=== PATIENT | male | born 1950 | race Caucasian/White ===

== ENCOUNTER → 2020-02-11 10:48 | Outpatient (CLI) | payer MEDICARE, OTHER, SELFPAY ==
--- NOTE | 2020-02-11 12:14 | DI.US.S_ITS ---
PROCEDURE: US ABD AORTA ANEURYSM SCREEN INDICATIONS: AAA SCREEN TECHNIQUE: Real time scanning was performed of the aorta and iliac arteries, with image documentation. COMPARISON: None. FINDINGS: Aorta: Proximal aortic diameter measures 2.5 cm. Mid-aorta measures 2.1 cm. Distal aortic diameter is 2 cm. Iliac arteries: Right common iliac artery measures 1.5 cm. Left common iliac artery measures 1.5 cm. IMPRESSION: Negative for aneurysm. Dictated by: Dennis Esquivel M.D. on 02/11/2020 at 12:37 Approved by: Dennis Esquivel M.D. on 02/11/2020 at 12:38
[2020-02-11 12:32] LABS: Prostate Specific Antigen Scrn 2.85 ng/mL (0.1-4.0)
== END ==
PROVIDERS: PCP Student in an Organized Health Care Education/Training Program; Referring Provider Student in an Organized Health Care Education/Training Program; Visit Provider Student in an Organized Health Care Education/Training Program
DX: Z13.6 Encounter for screening for cardiovascular disorders (principal); Z12.5 Encounter for screening for malignant neoplasm of prostate; Z87.891 Personal history of nicotine dependence
CPT/HCPCS: 36415; 76706; G0103

== ENCOUNTER → 2021-02-26 10:05 | Outpatient (CLI) | payer MEDICARE, OTHER, SELFPAY ==
[2021-02-26 11:46] LABS: Cholesterol 203 mg/dL (140-199); HDL Cholesterol 56 mg/dL (40-60); LDL Cholesterol Calculated 129 mg/dL (<100); Triglycerides 89 mg/dL (35-150)
[2021-02-26 11:57] LABS: Vitamin D 25 Hydroxy (D3) 20.2 ng/mL (30.0-100.0)
[2021-02-26 12:12] LABS: Prostate Specific Antigen Scrn 2.69 ng/mL (0.1-4.0)
== END ==
PROVIDERS: PCP Student in an Organized Health Care Education/Training Program; Referring Provider Student in an Organized Health Care Education/Training Program; Visit Provider Student in an Organized Health Care Education/Training Program
DX: E78.2 Mixed hyperlipidemia (principal); Z12.5 Encounter for screening for malignant neoplasm of prostate; R97.20 Elevated prostate specific antigen [PSA]; E55.9 Vitamin D deficiency, unspecified
CPT/HCPCS: 36415; 80061; 82306; G0103

== ENCOUNTER → 2021-04-16 12:18 | Outpatient (CLI) | payer MEDICARE, OTHER, SELFPAY ==
--- NOTE | 2021-05-01 08:09 | PM.CARDMON.1 ---
Thread Puller Report Referral & Results Date Patient Seen: 04/16/21 Requesting provider: Earnest Sanchez Indication: Atrial fibrillation Duration of monitoring (days): 7 Diary information: There was 1 patient diary entry and 1 patient triggered event These patient events were associated variably with (within 45 seconds) sinus rhythm and PACs Data: Minimum heart rate identified was 52 beats per minute at 06:19 on 04/21/2021 Maximum sinus heart rate was 126 beats per minute at 16:33 on 04/21/2021 Maximum overall heart rate was 164 beats per minute at 17:39 on 04/20/2021 during a 4 beat run of nonsustained monomorphic ventricular tachycardia Approximately 5.3% of identified beats were supraventricular ectopic in origin which would classify them as frequent Less than 1% of identified beats were ventricular ectopic in origin which classify them as rare There was the single run of nonsustained ventricular tachycardia as above There were 3 runs of SVT the fastest being 118 beats per minute which would suggest probable atrial tachycardia rather than true SVT. The longest run lasted 15 beats at a rate of 111 beats per minute Proximally 3% of identified beats were atrial fibrillation in origin. Heart rate 64-140 beats per minute during these episodes of atrial fibrillation. 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 Clinical correlation suggested
== END ==
PROVIDERS: Family Provider Student in an Organized Health Care Education/Training Program; PCP Student in an Organized Health Care Education/Training Program; Referring Provider Student in an Organized Health Care Education/Training Program; Visit Provider Student in an Organized Health Care Education/Training Program
DX: I48.91 Unspecified atrial fibrillation (principal)
CPT/HCPCS: 93242; 93244

== ENCOUNTER → 2021-07-30 11:16 | Outpatient (CLI) | payer MEDICARE, OTHER, SELFPAY ==
--- NOTE | 2021-07-30 | DI.MRI.S_ITS ---
PROCEDURE: MR LUMBAR SPINE WO CON INDICATIONS: Radiculopathy, lumbar region TECHNIQUE: Noncontrast sagittal T1 spin echo and T2 fast echo, sagittal STIR, axial T1 and T2 fast spin echo through the lumbar spine. In cases with scoliosis, additional coronal T2 fast spin echo may be performed. COMPARISON: None. FINDINGS: Image quality: Excellent. Alignment and Curvature: Trace degenerative anterolisthesis of L3 on L4. Bone Marrow: Marrow is of normal overall signal. No acute vertebral body compression fractures. Spinal Cord: Conus medullaris terminates at the L1 level. Visualized cord demonstrates normal signal and size. Paraspinous Soft Tissues: No paravertebral masses. T12-L1: No canal stenosis or foraminal stenosis. L1-L2: No canal stenosis or foraminal stenosis. L2-L3: Minimal disc bulge. Facet hypertrophy. No canal stenosis or foraminal stenosis. L3-L4: Disc bulge, facet hypertrophy. Mild canal stenosis. Mild bilateral foraminal stenosis. L4-L5: Posterior annulus tear. Mild diffuse disc bulge with superimposed mild central posterior disc protrusion. Facet hypertrophy. Moderate canal stenosis. Additionally, there is a small superiorly extruded disc fragment in the right lateral recess and foramen which impinges on the right L4 nerve in the right lateral recess and medial right foramen. L5-S1: Posterior annulus tear associated with mild disc bulge. Facet hypertrophy. No canal stenosis. No significant foraminal stenosis. IMPRESSION: 1. At L4-L5, there is disc bulge with superimposed central posterior disc protrusion. There is moderate canal stenosis. A small, superior extruded disc fragment in the right lateral recess and right foramen impinges on the right L4 nerve root. 2. Mild canal stenosis at L3-L4. 3. Annulus tear plus disc bulge at L5-S1. 4. Multilevel facet arthropathy. Dictated by: Ranjan Abreu M.D. on 07/30/2021 at 13:54 Approved by: Ranjan Abreu M.D. on 07/30/2021 at 14:01
== END ==
PROVIDERS: Family Provider Student in an Organized Health Care Education/Training Program; PCP Student in an Organized Health Care Education/Training Program; Referring Provider Physical Medicine & Rehabilitation; Visit Provider Physical Medicine & Rehabilitation
DX: M51.16 Intervertebral disc disorders with radiculopathy, lumbar region (principal); M51.17 Intervertebral disc disorders with radiculopathy, lumbosacral region; M48.061 Spinal stenosis, lumbar region without neurogenic claudication; M47.26 Other spondylosis with radiculopathy, lumbar region; M47.27 Other spondylosis with radiculopathy, lumbosacral region
CPT/HCPCS: 72148

== ENCOUNTER → 2022-12-24 16:37 | Outpatient (CLI) | payer MEDICARE, OTHER, SELFPAY ==
--- NOTE | 2022-12-24 16:39 | DI.RAD.S_ITS ---
PROCEDURE: XR CHEST 2V INDICATIONS: CRAIN, peripheral edema, A fib hx, cigar use-pleuritis or ? TECHNIQUE: 2 views of the chest were acquired. COMPARISON: None. FINDINGS: Surgical changes and devices: None. Lungs and pleura: Moderate diffuse lung disease, probably combination of interstitial changes and airspace consolidation. There is also suspected atelectasis. Moderate left pleural effusion. Mediastinum: Heart borders are obscured. Bones and chest wall: No suspicious bony abnormalities. Soft tissues appear unremarkable. IMPRESSION: Moderate diffuse interstitial and airspace lung disease. Moderate left pleural effusion. Consider follow-up radiography versus CT depending on clinical context. An underlying mass cannot be excluded on radiography. Dictated by: Vincent Garcia M.D. on 12/24/2022 at 17:41 Approved by: Vincent Garcia M.D. on 12/24/2022 at 17:43
[2022-12-24 17:15] LABS: Add Manual Diff / Slide Review NO; Basophils Absolute Auto 0 /uL (0-100); Basophils Percent Auto 0.8 % (0-2); Eosinophils Absolute Auto 100 /uL (0-450); Eosinophils Percent Auto 2.2 % (2-4); Hematocrit 49.4 % (41-53); Hemoglobin 16.7 g/dL (13.5-17.5); Lymphocytes Absolute Auto 1200 /uL (1100-4500); Lymphocytes Percent Auto 22.4 % (25-40); Mean Corpuscular HGB Conc 33.9 % (30-36); Mean Corpuscular Hemoglobin 30.1 PG (26-34); Mean Corpuscular Volume 88.8 fL (80-100); Monocytes Absolute Auto 800 /uL (0-900); Neutrophils Absolute Auto 3200 /uL (1500-7000); Neutrophils Percent Auto 59.6 % (50-75); Platelet Count 230 X10^3/uL (150-400); Red Blood Cell Count 5.56 X10^6/uL (4.5-5.9); Red Cell Distribution Width 13.7 % (11.6-14.8); White Blood Cell Count 5.3 X10^3/uL (4.5-11.0)
[2022-12-24 17:24] LABS: Alanine Aminotransferase 18 IU/L (<50); Albumin 3.9 g/dL (3.5-5.0); Albumin Globulin Ratio 1.1 (1.0-2.8); Alkaline Phosphatase 69 U/L (38-126); Aspartate Aminotransferase 29 IU/L (17-59); BUN Creatinine Ratio 18.3 (6-22); Bilirubin Total 1.2 mg/dL (0.2-1.3); Blood Urea Nitrogen 13 mg/dL (9-20); Calcium 9.6 mg/dL (8.4-10.2); Carbon Dioxide 33 mmol/L (22-32); Chloride 103 mmol/L (98-107); Creatine Kinase 48 U/L (55-170); Estimated Glomerular Filt Rate > 60 mL/min (>60); Globulin 3.4 g/dL (1.7-4.1); Glucose 87 mg/dL (80-110); HEMOLYSIS < 15 (0-50); Potassium 3.8 mmol/L (3.4-5.1); Sodium 142 mmol/L (137-145); Total Protein 7.3 g/dL (6.3-8.2)
[2022-12-24 17:33] LABS: NT-proBNP (BNP-Adult 18+) 27 pg/mL (<125)
[2022-12-24 19:59] LABS: Erythrocyte Sedimentation Rate 2 MM/HR (0-15)
== END ==
PROVIDERS: Family Provider Student in an Organized Health Care Education/Training Program; PCP Pediatrics; Referring Provider Pediatrics; Visit Provider Pediatrics
DX: E78.2 Mixed hyperlipidemia (principal); R06.09 Other forms of dyspnea; I47.1 Supraventricular tachycardia; I48.0 Paroxysmal atrial fibrillation; J84.9 Interstitial pulmonary disease, unspecified; J90 Pleural effusion, not elsewhere classified
CPT/HCPCS: 36415; 71046; 80053; 82550; 83880; 85025; 85651

== ENCOUNTER 2022-12-27 09:22 | Day surgery (SDC) | payer MEDICARE, OTHER, SELFPAY ==
--- NOTE | 2022-12-27 | PATH_ITS ---
[facility] Accession Number: [id number] No. of containers..01 Tissue . 01 Material submitted: . colon - TRANSVERSE COLON POLYP . 01 Diagnosis: Transverse Colon Polyp: Tubular adenoma. MRV 01/02/2023 1530 Local . 01 Electronically signed: . Royce James MD, PhD, Pathologist NPI- [id number] . 01 Gross description: . TRANSVERSE COLON POLYP: Received in formalin is 1 fragment(s) of luther, soft tissue measuring 0.3 x 0.3 x 0.3 cm submitted entirely in 1 cassette(s) /LEOBARDO 12/31/2022 2312 Local . 01 Pathologist provided ICD-10: D12.3 . 01 CPT . 968544 Specimen Comment: A courtesy copy of this report has been sent to [facility] Pathology Performed at: 01 [facility] Cytology [address] [place] [id number] MD Maninder Taylor MD Phone: [phone]
[2022-12-27 10:04] VITALS: BP 117/72; PULSE 66; RESP 18; TEMP 36.4; O2SAT 94; BMI 25.0
[2022-12-27] MEDS: LACTATED RINGERS 1,000 ML 125 ML IV (10:13)
--- NOTE | 2022-12-27 10:43 | P.HP_ITS ---
History of Present Illness History of Present Illness Date Patient Seen: 12/27/22 Time Patient Seen: 10:43 Chief complaint: SDC, family history of colon cancer Narrative: This is a 72-year-old male who presents for a screening colonoscopy. He has had 2 previous colonoscopies the last was about 5 years ago at [facility]. His father did of colon cancer. Reports no concerning symptoms at that is time and no further questions or concerns [facility] Medical History (Updated 12/27/22 @ 10:45 by Rafaela Aguilar MD) CRAIN (dyspnea on exertion) H/O Mohs micrographic surgery for skin cancer Inguinal hernia Surgical History (Updated 12/27/22 @ 10:03 by Bandar Aguayo RN) Hx of inguinal hernia surgery Hx of tonsillectomy Social History household members: spouse Smoking Status: Current some day smoker alcohol intake: current Meds Home Medications and Allergies Home Medications Medication Instructions Recorded Confirmed Type aspirin 81 mg tablet,delayed 81 mg PO DAILY 04/09/21 12/27/22 History release (Adult Aspirin Regimen) tamsulosin 0.4 mg capsule 0.4 mg PO BEDTIME 09/12/22 12/27/22 History lovastatin 20 mg tablet 20 mg PO DAILY #90 tabs 09/18/22 12/27/22 Rx Allergies Allergy/AdvReac Type Severity Reaction Status Date / Time No Known Drug Allergies Allergy Unverified 12/24/22 16:09 Exam Vital Signs (past 8 hours): - 12/27/22 10:04 Temperature 97.5 F L Pulse Rate 66 Respiratory Rate 18 Blood Pressure 117/72 Pulse Oximetry 94 Const General: cooperative, healthy appearing and comfortable Nutritional Appearance: average body habitus and well nourished [facility] Head: normal to inspection Ears: other (possible slight hearing loss) Eyes General: appearance normal, both eyes and all related structures Resp Effort & Inspection: normal respiratory effort and able to speak in complete sentences GI Palpation: soft and No tender Assessment & Plan Assessment and plan (1) Family history of colon cancer: Status: Acute (2) Colon cancer screening: Status: Acute Assessment & Plan narrative: Presents today for screening colonoscopy I discussed the risks benefits and alternatives including but not limited to perforation of the colon and an incomplete exam he fully understands these risks and would like to proceed.
[2022-12-27 11:45] VITALS: BP 96/64; PULSE 62; RESP 14; TEMP 36.2; O2SAT 95
[2022-12-27 11:50] VITALS: BP 95/62; PULSE 60; RESP 14; O2SAT 94
--- NOTE | 2022-12-27 11:54 | PM.OP.COLON ---
Operative Date/Time/Diagnoses Date of procedure: 12/27/22 Pre-op diagnosis: Family history of colon cancer, screening Post-op diagnosis: same Procedure & Clinicians Study performed: Colonoscopy and biopsy Same procedure as scheduled: Yes Indications: Family history of colon cancer in father, and colon cancer screening. Surgeon: Rafaela Aguilar Procedure Notes Procedure in detail: Patient was taken to the endoscopy suite and placed in a left lateral decubitus position. A time-out was performed. With the help of anesthesiologist conscious sedation was induced and monitored throughout the case. A digital rectal exam was performed and there were no masses or strictures. The colonoscope was introduced into the anal canal and advanced through to the cecum. In the transverse colon a medium-sized polyp was seen and removed with a snare. The cecum was then reached and a photograph of the appendiceal orifice was obtained. The bowel prep was good [place] bowel prep score of 2. The scope was then withdrawn for a total of 8 minutes and no further polyps were seen. The scope was then retroflexed and a photograph of the internal hemorrhoidal piles was obtained. Findings: polyp(s) Specimen(s): other (transverse colon polyp) Complications: none Post-procedure Recommendations: Colonoscopy in 5 years
[2022-12-27 11:55] VITALS: BP 104/66; PULSE 58; RESP 18; O2SAT 97
[2022-12-27 12:12] VITALS: BP 110/73; PULSE 60; RESP 12; TEMP 36.5; O2SAT 98
== END 2022-12-27 12:17 | disposition home or self-care (01) ==
PROVIDERS: Family Provider Student in an Organized Health Care Education/Training Program; PCP Pediatrics; Referring Provider Surgery; Visit Provider Surgery
PROC: 0DJD8ZZ Inspection of Lower Intestinal Tract, Via Natural or Artificial Opening Endoscopic (ICD-10-PCS; CPT 45378; principal; 2022-12-27 10:45)
DX: Z12.11 Encounter for screening for malignant neoplasm of colon (principal); Z80.0 Family history of malignant neoplasm of digestive organs; D12.3 Benign neoplasm of transverse colon
CPT/HCPCS: 45385; J2704

== ENCOUNTER → 2023-01-13 09:15 | Outpatient (CLI) | payer MEDICARE, OTHER, SELFPAY ==
--- NOTE | 2023-01-13 09:17 | DI.CT.S_ITS ---
PROCEDURE: CT CHEST W CON INDICATIONS: SOB, abnorml chest xray, ? interstial dz TECHNIQUE: After the administration of intravenous contrast, 5 mm thick sections acquired from the pulmonary apices to the posterior costophrenic angles. 1 mm axial lung, 5 mm thick coronal and sagittal reformats and 7 mm axial MIP were acquired. For radiation dose reduction, the following was used: automated exposure control, adjustment of mA and/or kV according to patient size. COMPARISON: [facility], CR, XR CHEST 2V, 12/24/2022, 16:35. FINDINGS: Image quality: Excellent. Lungs and pleura: Extensive bilateral perihilar scarring is noted. Bronchiectasis and air bronchograms are present centrally. There is a large left low-density pleural effusion. Within the left pleural fluid there is an ill-defined mass which has a heterogeneous appearance and may contain some enhancing soft tissue which measures approximately 17.1 x 13.1 by 17.3 cm. There may be a small blood vessel feeding this mass from the anterior aspect of the aorta (series 2/image 45). Compressive atelectasis is present within the posterior aerated portion of the left lower lobe. Mediastinum: Heart size is normal. No pericardial effusion. No mediastinal or hilar adenopathy by size criteria. There are calcified bilateral hilar lymph nodes. Thoracic aorta and central pulmonary arteries are normal in size. Esophagus is normal in caliber. No hiatal hernia. Bones and chest wall: No suspicious bony lesions. No vertebral body compression fractures. No axillary or supraclavicular adenopathy by size criteria. Thyroid gland is unremarkable . Abdomen: Visualized upper abdominal solid organs appear normal. The superior aspect of the gallbladder has a heterogeneous appearance suggesting cholelithiasis, although enhancing soft tissue within the gallbladder cannot be excluded. Upper abdominal bowel loops are otherwise normal in caliber. IMPRESSION: 1. Bilateral perihilar scarring with extensive bronchiectasis and air bronchograms noted. These findings may be associated with a distant history of radiation pneumonitis or could represent sequela of a pneumoconiosis such as silicosis. Additionally, calcified lymph nodes suggest prior granulomatous disease. Correlation with clinical history would be helpful. 2. Complex pleural mass within the posterior inferior left pleural space. Differential considerations include neoplasm and congenital pulmonary airway malformation. There appears to be a small feeding artery off the anterior aspect of the descending thoracic aorta favoring pulmonary malformation. 3. Moderate-sized low-density left pleural effusion. 4. Heterogeneous appearance of the gallbladder which may represent cholelithiasis but is incompletely characterized on this limited view. If further characterization is warranted, right upper quadrant ultrasound could be used. Dictated by: Mera Soliz M.D. on 01/13/2023 at 12:58 Approved by: Mera Soliz M.D. on 01/13/2023 at 13:06
--- NOTE | 2023-01-13 09:39 | DI.ECHO.S_ITS ---
[facility]---------+ [facility] +---------+ : : [address] : : : : [id number] : : : : Phone: [phone]+ Echocardiogram Report + + :Name: ANDREA JOSUE Study Date: 01/13/2023 Height: 74 in : :[facility] ReadingLocation: Weight: 195 lb : : Gender: Male BSA: 2.1 m2 : :: 1950 Age: 72 yrs BP: 119/73 mmHg: :Reason For Study: SHORTNESS OF BREATH, LOWER EXTREMITY EDEMA : :Ordering Physician: ELEAZAR, : :INDER Blair Performed By: Iesha Juarez : :Referring: INDER BUSH : + + Interpretation Summary Technically difficult study. The left ventricular cavity is small. The ejection fraction is estimated to be 55-60%. No valvular abnormality. Non-cardiac echogenic mass, measuring 13.4cm x 13.5cm. Left pleural effusion noted. Procedure: A two-dimensional transthoracic echocardiogram with color flow and Doppler was performed. The study quality was technically difficult. There is no prior echocardiogram noted for this patient. The patient was in sinus rhythm with heart rates between 57-63 bpm during the exam. Left Ventricle: The left ventricular cavity is small. There is normal left ventricular wall thickness. The ejection fraction is estimated to be 55-60%. There are no obvious focal wall motion abnormalities noted but poor endocardial definition reduces the sensitivity for the detection of such. Right Ventricle: The right ventricle is not well visualized. The right ventricular systolic function is normal. Atria: The left atrial size is normal. Right atrial size is normal. There is no Doppler evidence for an interatrial shunt. Mitral Valve: The mitral valve is normal in structure and function. There is no mitral regurgitation noted. Aortic Valve: The aortic valve opens well. There is no aortic valve stenosis. No aortic regurgitation is present. Tricuspid Valve: The tricuspid valve is not well visualized, but is grossly normal. There is trace tricuspid regurgitation. Pulmonic Valve: The pulmonic valve is not well seen, but is grossly normal. There is mild pulmonic regurgitation. Great Vessels: The aortic root is normal size. The ascending aorta could not be visualized. The IVC is of normal diameter and collapses greater than 50% with a sniff. This suggests a low right atrial pressure of 3 mm Hg. Pericardium/ Pleura There is no pericardial effusion. Non-cardiac echogenic mass, measuring 13.4cm x 13.5cm. Left pleural effusion noted. MMode/2D Measurements & Calculations LVIDd: 3.6 cm LVOT diam: 2.2 cm LVIDs: 2.4 cm Ao root diam: 3.7 cm FS: 33.5 % Ao Arch Diam (Prox Trans): 2.5 cm IVSd: 0.92 cm LVPWd: 0.93 cm LV harding. diameter/BSA (cm/m^2): 1.7 LV sys. diameter/BSA (cm/m^2): 1.1 LA A2 area: 21.6 cm2 RA long axis: 5.5 cm LA A4 area: 17.6 cm2 RA area: 20.1 cm2 LA length (vol): 5.7 cm RA vol: 62.2 ml LA vol: 56.4 ml RA : 28.9 ml/m2 LA vol index: 26.3 ml/m2 IVC diam: 1.9 cm TAPSE: 1.8 cm Doppler Measurements & Calculations Ao V2 max: 98.8 cm/sec LVOT Max Mike: 95.6 cm/sec Ao V2 mean: 75.8 cm/sec LV V1 max P.7 mmHg Ao max P.9 mmHg LV V1 VTI: 21.7 cm Ao mean P.5 mmHg KEVAN(I,D): 3.8 cm2 Ao V2 VTI: 21.6 cm KEVAN(V,D): 3.7 cm2 sev ratio: 1.0 KEVAN indexed to BSA (cm^2/m^2): 1.8 MV E max mike: 115.3 cm/sec PA V2 max: 77.0 cm/sec MV A max mike: 96.1 cm/sec PA V2 mean: 52.7 cm/sec MV E/A: 1.2 PA mean P.3 mmHg Med Peak E' Mike: 5.0 cm/sec PA pr(Accel): 25.9 mmHg E/E' med: 22.9 Lat Peak E' Mike: 7.6 cm/sec E/E' lat: 15.1 E/e' average: 19.0 MV dec time: 0.27 sec MVA(VTI): 2.4 cm2 MV V2 mean: 70.1 cm/sec SV(LVOT): 82.5 ml MV mean P.2 mmHg MV V2 VTI: 34.4 cm Electronically signed by: Rick Villalobos on Reading Physician:01/13/2023 03:17 PM
== END ==
PROVIDERS: Family Provider Student in an Organized Health Care Education/Training Program; PCP Pediatrics; Referring Provider Pediatrics; Visit Provider Pediatrics
DX: I48.0 Paroxysmal atrial fibrillation (principal); J90 Pleural effusion, not elsewhere classified; J94.9 Pleural condition, unspecified; J47.9 Bronchiectasis, uncomplicated; J98.4 Other disorders of lung; I47.1 Supraventricular tachycardia; R06.09 Other forms of dyspnea
CPT/HCPCS: 71260; 93306; Q9967

== ENCOUNTER → 2023-02-21 09:19 | Outpatient (CLI) | payer MEDICARE, OTHER, SELFPAY ==
--- NOTE | 2023-02-21 09:20 | DI.US.S_ITS ---
PROCEDURE: US CHEST COMPARISON: [facility], CT, CT CHEST W CON, 01/13/2023, 10:28. INDICATIONS: LEFT PLEURAL EFFUSION - CONSULT FOR DIAGNOSTIC AND THERAPEUTIC THORACENTESIS FINDINGS: Large left Thoracic mass redemonstrated. The mass occupies most of the imaged thoracic cavity. Left pleural fluid is present, however the volume and configuration of the fluid is not amenable for safe thoracentesis. IMPRESSION: Left pleural fluid is present, volume and configuration of the fluid not amenable for safe thoracentesis. Discussed with the patient at the conclusion of the exam. Dictated by: Dayo Sebastian M.D. on 02/21/2023 at 10:09 Approved by: Dayo Sebastian M.D. on 02/21/2023 at 10:11
[2023-02-21 09:40] LABS: Add Manual Diff / Slide Review NO; Basophils Absolute Auto 0 /uL (0-100); Basophils Percent Auto 0.7 % (0-2); Eosinophils Absolute Auto 200 /uL (0-450); Eosinophils Percent Auto 3.3 % (2-4); Hematocrit 42.2 % (41-53); Hemoglobin 14.2 g/dL (13.5-17.5); Lymphocytes Absolute Auto 1000 /uL (1100-4500); Lymphocytes Percent Auto 18.2 % (25-40); Mean Corpuscular HGB Conc 33.7 % (30-36); Mean Corpuscular Hemoglobin 29.4 PG (26-34); Mean Corpuscular Volume 87.3 fL (80-100); Monocytes Absolute Auto 700 /uL (0-900); Monocytes Percent Auto 12.6 % (3-14); Neutrophils Absolute Auto 3700 /uL (1500-7000); Neutrophils Percent Auto 65.2 % (50-75); Platelet Count 247 X10^3/uL (150-400); Red Blood Cell Count 4.84 X10^6/uL (4.5-5.9); Red Cell Distribution Width 13.2 % (11.6-14.8); White Blood Cell Count 5.6 X10^3/uL (4.5-11.0)
[2023-02-21 09:46] LABS: INR 1.2 (0.9-1.3); Prothrombin Time 13.9 SECONDS (10.1-12.7)
== END ==
PROVIDERS: Family Provider Student in an Organized Health Care Education/Training Program; PCP Pediatrics; Referring Provider Internal Medicine Critical Care Medicine; Visit Provider Internal Medicine Critical Care Medicine
DX: J90 Pleural effusion, not elsewhere classified (principal)
CPT/HCPCS: 36415; 76604; 85025; 85610

== ENCOUNTER → 2023-06-03 10:47 | Outpatient (CLI) | payer MEDICARE, OTHER, SELFPAY ==
--- NOTE | 2023-06-03 | DI.RAD.S_ITS ---
PROCEDURE: XR CHEST 2V INDICATIONS: S/P LUNG SURGERY TECHNIQUE: 2 views of the chest were acquired. COMPARISON: [facility], , XR CHEST 2V, 12/24/2022, 16:35. FINDINGS: Surgical changes and devices: Chronic interstitial changes are present. Previous retrocardiac left lower lobe opacity has resolved. Lungs and pleura: Lungs are clear. No pleural effusions or pneumothorax. Mediastinum: Mediastinal contours are normal. Heart size is normal. Bones and chest wall: No suspicious bony abnormalities. Soft tissues appear unremarkable. IMPRESSION: No new focal area of consolidation. Dictated by: Jodi Wing M.D. on 06/03/2023 at 15:55 Approved by: Jodi Wing M.D. on 06/03/2023 at 15:56
== END ==
PROVIDERS: Family Provider Student in an Organized Health Care Education/Training Program; PCP Pediatrics; Referring Provider Physician Assistant; Visit Provider Physician Assistant
DX: Z09 Encounter for follow-up examination after completed treatment for conditions other than malignant neoplasm (principal); D49.2 Neoplasm of unspecified behavior of bone, soft tissue, and skin; J43.2 Centrilobular emphysema; R91.8 Other nonspecific abnormal finding of lung field
CPT/HCPCS: 71046; 99214

== ENCOUNTER → 2023-06-16 10:42 | Outpatient (CLI) | payer MEDICARE, OTHER, SELFPAY ==
--- NOTE | 2023-06-16 10:44 | DI.CT.S_ITS ---
PROCEDURE: CT CHEST WO CON INDICATIONS: Multiple pulmonary nodules and emphysema on PET CT. Eval TECHNIQUE: Noncontrast 2.0-2.5 mm thick sections acquired from the pulmonary apices to the posterior costophrenic angles. 7 mm thick axial MIP and 5 mm coronal and sagittal reformats were then acquired. For radiation dose reduction, the following was used: automated exposure control, adjustment of mA and/or kV according to patient size. COMPARISON: Outside Facility, RG, CT PET SKULL BASE TO MID THIGH, 02/25/2023, 13:28. [facility], CT, CT CHEST W CON, 01/13/2023, 10:28. FINDINGS: Image quality: Diagnostic, given the low radiation dose technique. Lungs and pleura: The large left lower lobe mass is no longer visualized. There is left infrahilar opacity, measuring 2.7 x 2.8 cm. There is bronchiectasis in left lower lobe. There are multiple small pulmonary nodules, unchanged in size. Reference nodules are listed in following: Nodule 1: 6 mm; posterior right upper lobe; series 3, image 88. Nodule 2: 7 mm; right middle lobe; series 3, image 181. Nodule 3: 10 mm; anterior left upper lobe; series 3, image 128. There is a small loculated left pleural effusion. Mediastinum: Heart size is normal. There is moderate coronary artery calcification. No pericardial effusion. No mediastinal adenopathy by size criteria. Thoracic aorta and central pulmonary arteries are normal in size. Esophagus is normal in caliber. Small hiatal hernia. Bones and chest wall: No suspicious bony lesions. No vertebral body compression fractures. No axillary or supraclavicular adenopathy by size criteria. No thyroid nodules which require sonographic follow up, per consensus guidelines. Upper Abdomen: Visualized upper abdomen solid organs and bowel loops appear normal in the absence of contrast. IMPRESSION: 1. The large left lower lobe nodule seen on the comparison exam is no longer visualized. There is an infrahilar opacity measuring 2.7 x 2.8 cm, suspicious for an inflammatory mass. Recommend follow-up to resolution. 2. Stable pulmonary nodules bilaterally. 3. Small loculated left pleural effusion. Fleischner Society criteria for SOLID lung nodule followup. Nodule size (mm)Low-risk patientHigh-risk patient<6 (single or multiple)No routine followup.Optional CT at 12 months. 6-8 (single or multiple)CT at 6-12 months, then optional CT at 18-24 mo.CT at 6-12 months, then CT at 18-24 months. >8 (single)CT at 3 months, PET-CT, or biopsy. Same as for low-risk pts. >8 (multiple)CT at 3-6 months, then optional CT at 18-24 mo.CT at 3-6 months, then CT at 18-24 months. Recommendations do not apply to lung cancer screening, patients with immunosuppression, or patients with known primary cancer. Dictated by: Margot Delgado M.D. on 06/17/2023 at 14:01 Approved by: Margot Delgado M.D. on 06/17/2023 at 14:17
== END ==
PROVIDERS: Family Provider Student in an Organized Health Care Education/Training Program; PCP Family Medicine; Referring Provider Internal Medicine Critical Care Medicine; Visit Provider Internal Medicine Critical Care Medicine
DX: J43.2 Centrilobular emphysema (principal); J90 Pleural effusion, not elsewhere classified; R91.8 Other nonspecific abnormal finding of lung field; I25.10 Atherosclerotic heart disease of native coronary artery without angina pectoris; K44.9 Diaphragmatic hernia without obstruction or gangrene
CPT/HCPCS: 71250

== ENCOUNTER → 2023-10-14 11:45 | Outpatient (CLI) | payer MEDICARE, OTHER, SELFPAY ==
--- NOTE | 2023-10-14 11:46 | DI.CT.S_ITS ---
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 1 mm lung window, 5 mm thick coronal and sagittal and 7 mm axial MIP reformats were then acquired. For radiation dose reduction, the following was used: automated exposure control, adjustment of mA and/or kV according to patient size. COMPARISON: Outside Facility, RG, CT PET SKULL BASE TO MID THIGH, 02/25/2023, 13:28. [facility], CT, CT CHEST WO CON, 06/16/2023, 10:49. FINDINGS: Image quality: Diagnostic. Lower Neck: No enlarged lymph nodes. Thyroid: No thyroid nodules which require sonographic follow up, per consensus guidelines. Axillae: No enlarged lymph nodes. Chest Wall: Unremarkable. Bones: Unremarkable. Lungs and Pleura: Postoperative changes are redemonstrated in the lower left hemithorax. When compared with the study dated June 16, 2023, the low-density loculated appearing pleural effusion has nearly entirely resolved. As before, scarring and bronchiectasis is present in the bilateral perihilar regions. This has an unchanged appearance from the prior study. Severe emphysema is redemonstrated. No new suspicious pulmonary nodules or mass lesions. No new airspace opacities. Heart: Heart size is normal. No pericardial effusion. Thoracic Vessels: The aorta and pulmonary arteries demonstrate normal size. Mediastinum and [place]: No enlarged lymph nodes. Esophagus: The esophagus is patulous and gas-filled. No wall thickening. Upper Abdomen: Visualized upper abdomen solid organs and bowel loops appear normal. IMPRESSION: 1. Near complete resolution of the small left pleural effusion when compared with the prior CT. 2. No findings to suggest tumor recurrence or new metastasis. Dictated by: Mera Soliz M.D. on 10/14/2023 at 13:36 Approved by: Mera Soliz M.D. on 10/14/2023 at 13:53
== END ==
PROVIDERS: Family Provider Family Medicine; PCP Family Medicine; Referring Provider Thoracic Surgery (Cardiothoracic Vascular Surgery); Visit Provider Thoracic Surgery (Cardiothoracic Vascular Surgery)
DX: D49.2 Neoplasm of unspecified behavior of bone, soft tissue, and skin (principal); J98.4 Other disorders of lung; J47.9 Bronchiectasis, uncomplicated
CPT/HCPCS: 71250

== ENCOUNTER → 2023-11-24 08:04 | Outpatient (CLI) | payer MEDICARE, OTHER, SELFPAY ==
--- NOTE | 2023-11-24 08:06 | DI.ECHO.S_ITS ---
[place] +---------+ [facility] : : [address] : : [place] : : [id number] : : Phone: [phone] Echocardiogram Report + + :Name: ANDREA JOSUE Study Date: 11/24/2023 Height: 74 in : :Hospital ReadingLocation: Weight: 190 lb : : Gender: Male BSA: 2.1 m2 : :: 1950 Age: 73 yrs BP: 113/69 mmHg: :Reason For Study: ATRIAL FIBRILLATION : :Ordering Physician: SALBADOR DANPerformed By: Iesha Juarez : :Referring: SALBADOR DAN : + + Interpretation Summary Normal left ventricle size with ejection fraction 60-65%. No valvular abnormality. Procedure: A two-dimensional transthoracic echocardiogram with color flow and Doppler was performed. The study quality was technically difficult. Comparison is made with the echocardiogram of 01/13/2023. The patient was in sinus bradycardia with heart rates between 52-55 bpm during the exam. Left Ventricle: The left ventricle is normal in size and wall thickness. The ejection fraction is estimated to be 60-65%. There are no obvious focal wall motion abnormalities noted but poor endocardial definition reduces the sensitivity for the detection of such. Right Ventricle: The right ventricle grossly appears normal in size with probable normal systolic function. Atria: The left atrial size is normal. Right atrial size is normal. There is no Doppler evidence for an interatrial shunt. Mitral Valve: The mitral valve is normal in structure and function. There is trace mitral regurgitation. Aortic Valve: The aortic valve is not well visualized. There is no aortic valve stenosis. There is trace aortic regurgitation. Tricuspid Valve: The tricuspid valve is normal in structure and function. There is trace tricuspid regurgitation. Pulmonic Valve: The pulmonic valve is not well seen, but is grossly normal. There is mild pulmonic regurgitation. Great Vessels: The aortic root is normal size. The dimensions of the ascending aorta are normal. The IVC is of normal diameter and collapses greater than 50% with a sniff. This suggests a low right atrial pressure of 3 mm Hg. Pericardium/ Pleura There is no pericardial effusion. There is no pleural effusion. MMode/2D Measurements & Calculations LVIDd: 5.2 cm LVOT diam: 2.3 cm LVIDs: 3.2 cm Ao root diam: 3.6 cm FS: 39.2 % asc Aorta Diam: 3.7 cm IVSd: 0.92 cm Ao Arch Diam (Prox Trans): 3.0 cm LVPWd: 0.72 cm LV harding. diameter/BSA (cm/m^2): 2.5 LV sys. diameter/BSA (cm/m^2): 1.5 LA A2 area: 18.0 cm2 RA long axis: 4.7 cm LA A4 area: 16.6 cm2 RA area: 15.6 cm2 LA length (vol): 4.4 cm RA vol: 44.5 ml LA vol: 56.9 ml RA : 20.9 ml/m2 LA vol index: 26.7 ml/m2 IVC diam: 1.9 cm RVD1 (basal): 4.3 cm TAPSE: 2.3 cm Doppler Measurements & Calculations Ao V2 max: 126.6 cm/sec LVOT Max Mike: 113.0 cm/sec Ao V2 mean: 91.7 cm/sec LV V1 max P.1 mmHg Ao max P.4 mmHg LV V1 VTI: 25.0 cm Ao mean P.7 mmHg KEVAN(I,D): 3.6 cm2 Ao V2 VTI: 27.9 cm KEVAN(V,D): 3.6 cm2 sev ratio: 0.90 KEVAN indexed to BSA (cm^2/m^2): 1.7 MV E max mike: 90.3 cm/sec PA V2 max: 83.6 cm/sec MV A max mike: 80.5 cm/sec PA V2 mean: 61.3 cm/sec MV E/A: 1.1 PA mean P.6 mmHg Med Peak E' Mike: 8.3 cm/sec PA pr(Accel): 34.5 mmHg E/E' med: 10.9 Lat Peak E' Mike: 7.4 cm/sec E/E' lat: 12.2 E/e' average: 11.6 MV dec time: 0.26 sec SV(LVOT): 100.1 ml Electronically signed by: Rick Villalobos on Reading Physician:11/24/2023 11:03 AM
== END ==
PROVIDERS: Family Provider Family Medicine; PCP Family Medicine; Referring Provider Family Medicine; Visit Provider Family Medicine
DX: I37.1 Nonrheumatic pulmonary valve insufficiency (principal); I48.91 Unspecified atrial fibrillation
CPT/HCPCS: 93306

== ENCOUNTER → 2023-11-25 09:10 | Outpatient (CLI) | payer MEDICARE, OTHER, SELFPAY ==
[2023-11-25 10:17] LABS: Hemoglobin A1C% w Est Avg Glu 5.5 % (4.0-6.0)
[2023-11-25 10:19] LABS: Add Manual Diff / Slide Review NO; Basophils Absolute Auto 0 /uL (0-100); Basophils Percent Auto 0.5 % (0-2); Eosinophils Absolute Auto 200 /uL (0-450); Eosinophils Percent Auto 2.6 % (2-4); Hematocrit 43.1 % (41-53); Hemoglobin 14.6 g/dL (13.5-17.5); Lymphocytes Absolute Auto 1200 /uL (1100-4500); Lymphocytes Percent Auto 19.3 % (25-40); Mean Corpuscular HGB Conc 33.8 % (30-36); Mean Corpuscular Hemoglobin 29.5 PG (26-34); Mean Corpuscular Volume 87.2 fL (80-100); Monocytes Absolute Auto 600 /uL (0-900); Monocytes Percent Auto 10.6 % (3-14); Neutrophils Absolute Auto 4000 /uL (1500-7000); Platelet Count 263 X10^3/uL (150-400); Red Blood Cell Count 4.95 X10^6/uL (4.5-5.9); Red Cell Distribution Width 13.5 % (11.6-14.8)
[2023-11-25 10:56] LABS: Alanine Aminotransferase 17 IU/L (<50); Albumin 3.9 g/dL (3.5-5.0); Albumin Globulin Ratio 1.4 (1.0-2.8); Alkaline Phosphatase 72 U/L (38-126); Aspartate Aminotransferase 30 IU/L (17-59); BUN Creatinine Ratio 12.5 (6-22); Bilirubin Total 0.9 mg/dL (0.2-1.3); Blood Urea Nitrogen 12 mg/dL (9-20); Carbon Dioxide 31 mmol/L (22-32); Chloride 106 mmol/L (98-107); Cholesterol 159 mg/dL (140-199); Estimated Glomerular Filt Rate > 60 mL/min (>60); Globulin 2.7 g/dL (1.7-4.1); Glucose 103 mg/dL (80-110); HDL Cholesterol 49 mg/dL (40-60); HEMOLYSIS < 15 (0-50); Magnesium 1.8 mg/dL (1.6-2.3); Potassium 4.4 mmol/L (3.4-5.1); Sodium 141 mmol/L (137-145); Total Protein 6.6 g/dL (6.3-8.2)
[2023-11-25 11:11] LABS: LDL Cholesterol Calculated 88 mg/dL (<100); Triglycerides 109 mg/dL (35-150)
== END ==
LOC: LAB 09:12
PROVIDERS: Family Provider Family Medicine; PCP Family Medicine; Referring Provider Internal Medicine Cardiovascular Disease; Visit Provider Internal Medicine Cardiovascular Disease
DX: I48.91 Unspecified atrial fibrillation (principal); R79.9 Abnormal finding of blood chemistry, unspecified; I25.89 Other forms of chronic ischemic heart disease; E78.5 Hyperlipidemia, unspecified; I25.10 Atherosclerotic heart disease of native coronary artery without angina pectoris
CPT/HCPCS: 36415; 80053; 80061; 83036; 83735; 84443; 85025

== ENCOUNTER → 2024-01-14 09:25 | Outpatient (CLI) | payer MEDICARE, OTHER, SELFPAY ==
--- NOTE | 2024-01-14 09:26 | DI.NM.S_ITS ---
PROCEDURE: NM NATHALIA PERF SPECT REST & STR Rest and exercise myocardial perfusion SPECT with gated imaging and ejection fraction RADIOPHARMACEUTICAL: 9.6 mCi Tc-99m sestamibi IV at rest and 27.2 mCi Tc-99m sestamibi IV at peak exercise. A 1-sky-[id number] was performed. INDICATIONS: Atrial fibrillation TECHNIQUE: Radiopharmaceutical was injected at peak stress test, and also at rest. SPECT images were obtained. SPECT myocardial perfusion images were displayed in short axis, horizontal long axis, and vertical long axis views. Gated images were reviewed using [employer] software. COMPARISON: None. CARDIAC STRESS: A standard Darron treadmill exercise tolerance test was performed by the patient under the supervision of an attending staff. The patient exercised for 7 minutes and 0 seconds; 7.0 METS; functional aerobic impairment (TIGIST) is -9%. Hemodynamic data: There is normal blood pressure and heart rate response to exercise stress. Patient achieved 89% of maximum predicted heart rate at peak exercise. Maximum blood pressure 152/90. Symptoms: Patient denied chest pain during exercise. EKG: No diagnostic EKG changes of ischemia; occasional PACs and PVCs. FINDINGS: Raw data: There is good myocardial labeling by radiotracer. No significant motion artifacts. Xupw-hk-[id number] ratio is 0.29 (normal is less than 0.38 for sestamibi tracer, and less than 0.50 for thallium tracer). Left ventricle function: Gated images demonstrate normal left ventricle wall thickening. No segmental wall motion abnormality. No transient ischemic dilation; TID is 1.02 (normal less than 1.3). The left ventricle resting end-diastolic volume is 95 mL. Left ventricle stress ejection fraction is >75%; normal values are above 45%. Myocardial perfusion: There is normal distribution of activity in the left and right ventricular myocardium. No fixed or reversible perfusion defects. IMPRESSION: Low risk study. No evidence of exercise-induced ischemia on ECG or SPECT imaging. Normal LV size with hyperdynamic function. Normal hemodynamic response. Good exercise capacity. Dictated by: Latanya Vanessa D.O. on 01/14/2024 at 15:42 Approved by: Latanya Vanessa D.O. on 01/14/2024 at 15:46
--- NOTE | 2024-01-14 09:27 | DI.US.S_ITS ---
PROCEDURE: US ABD AORTA ANEURYSM SCREEN INDICATIONS: Personal history of nicotine dependence TECHNIQUE: Real time scanning was performed of the aorta and iliac arteries, with image documentation. COMPARISON: [facility], ABD AORTA ANEURYSM SCREEN, 02/11/2020, 12:54. FINDINGS: Aorta: Proximal aortic diameter measures 2 cm. Mid-aorta measures 2 cm. Distal aortic diameter is 1.7 cm. Iliac arteries: Right common iliac artery measures 1.3 cm. Left common iliac artery measures 1.2 cm. IMPRESSION: Negative for aneurysm. Dictated by: Dennis Esquivel M.D. on 01/14/2024 at 13:58 Approved by: Dennis Esquivel M.D. on 01/14/2024 at 13:58
== END ==
PROVIDERS: Family Provider Family Medicine; PCP Family Medicine; Referring Provider Internal Medicine Cardiovascular Disease; Visit Provider Internal Medicine Cardiovascular Disease
DX: I25.10 Atherosclerotic heart disease of native coronary artery without angina pectoris (principal); Z87.891 Personal history of nicotine dependence; Z13.6 Encounter for screening for cardiovascular disorders
CPT/HCPCS: 76706; 78452; 93017; A9502

== ENCOUNTER → 2024-03-02 09:39 | Outpatient (CLI) | payer MEDICARE, OTHER, SELFPAY ==
--- NOTE | 2024-03-02 10:00 | DI.RAD.S_ITS ---
PROCEDURE: FL BARIUM SWALLOW INDICATIONS: Dysphagia COMPARISON: [facility], CT, CT CHEST WO CON, 10/14/2023, 12:07. FINDINGS: Function: There is decreased esophageal peristalsis with tertiary waves noted. The distal esophagus is dilated. There is incomplete dilation of the lower esophageal sphincter that is not well coordinated with esophageal contractions. Gastroesophageal reflux is noted into the upper soft gas. There is normal transit of a calibrated barium tablet through the esophagus into the stomach. Morphology: Air-contrast images demonstrate normal mucosal morphology. Single contrast views show no fixed esophageal strictures, extrinsic mass effects, or diverticula. Small reducible hiatal hernia. IMPRESSION: 1. Dilated esophagus with delayed opening of the lower esophageal sphincter suspicious for achalasia. 2. Intermittent tertiary non-propulsive contractions. 3. Small reducible hiatal hernia. 4. Gastroesophageal reflux into the upper esophagus. Approved by: Dayo Freire M.D. on 03/02/2024 at 10:58
== END ==
LOC: RAD 09:40
PROVIDERS: Family Provider Family Medicine; PCP Family Medicine; Referring Provider Surgery; Visit Provider Surgery
DX: K22.89 Other specified disease of esophagus (principal); K44.9 Diaphragmatic hernia without obstruction or gangrene; R13.10 Dysphagia, unspecified; K21.9 Gastro-esophageal reflux disease without esophagitis
CPT/HCPCS: 74220

== ENCOUNTER 2024-04-01 09:32 | Day surgery (SDC) | payer MEDICARE, OTHER, SELFPAY ==
[2024-04-01 09:58] VITALS: BP 112/64; PULSE 56; RESP 17; TEMP 36.2; O2SAT 95
[2024-04-01] MEDS: LACTATED RINGERS 1,000 ML 42 ML IV (10:06)
--- NOTE | 2024-04-01 10:25 | P.HP_ITS ---
History of Present Illness History of Present Illness Date Patient Seen: 04/01/24 Time Patient Seen: 10:25 Chief complaint: SDC Narrative: Johnnie is a 73-year-old man who presents with dysphagia. He did have a thoracotomy and resection of a lung mass last year which was not near the esophagus. He had a recent barium swallow which was suggestive of achalasia. See the notes for details. [facility] Medical History Encounter for subsequent annual wellness visit (AWV) in Medicare patient Atrial fibrillation Pleural effusion, left Pleural mass H/O Mohs micrographic surgery for skin cancer Inguinal hernia CRAIN (dyspnea on exertion) Surgical History Hx of tonsillectomy Hx of inguinal hernia surgery Social History marital status: household members: spouse lives independently: Yes occupational status: unemployed Smoking Status: Former smoker alcohol intake: current substance use type: does not use Meds Home Medications and Allergies Home Medications Medication Instructions Recorded Confirmed Type tamsulosin 0.4 mg capsule 0.4 mg PO BEDTIME 09/12/22 04/01/24 History cholecalciferol (vitamin D3) 25 25 mcg PO DAILY 02/14/23 03/01/24 History mcg (1,000 unit) capsule metoprolol succinate 25 mg 25 mg PO DAILY blood pressure #90 10/29/23 04/01/24 Rx tablet,extended release 24 hr tabs lovastatin 20 mg tablet 20 mg PO DAILY #90 tabs 12/25/23 04/01/24 Rx tadalafil 10 mg tablet 10 mg PO DAILY PRN Erectile 03/22/24 04/01/24 History Dysfunction apixaban 5 mg tablet (Eliquis) 5 mg PO BID 03/31/24 04/01/24 History Allergies Allergy/AdvReac Type Severity Reaction Status Date / Time No Known Drug Allergies Allergy Verified 04/01/24 10:13 Exam Vital Signs (past 8 hours): - 04/01/24 09:58 Temperature 97.1 F L Pulse Rate 56 L Respiratory Rate 17 Blood Pressure 112/64 Pulse Oximetry 95 Oxygen Delivery Method Room Air Oxygen Delivery Method Room Air Const General: healthy appearing Resp Effort & Inspection: normal respiratory effort Assessment & Plan Assessment and plan (1) Dysphagia: Qualifiers: Dysphagia type: esophageal phase Qualified Code(s): R13.19 - Other dysphagia Status: Acute Plan Johnnie is a 73-year-old man who presents with dysphagia. We will proceed with an esophagogastroduodenoscopy. Time-Based Coding :: [TOTAL MINUTES] spent with patient and on the chart (including review of chart, obtaining history, exam, reviewing outside data, placing orders, documenting exam and treatment plan, and counseling patient) on [DATE].
--- NOTE | 2024-04-01 10:39 | PM.OP.EGD ---
Operative Date/Time/Diagnoses Date of procedure: 04/01/24 Time of procedure: 10:40 Pre-op diagnosis: Dysphagia Post-op diagnosis: same Procedure & Clinicians Study performed: Esophagogastroduodenoscopy Same procedure as scheduled: Yes Surgeon: Rigo Olmos Procedure Notes Procedure in detail: Surgeon: Rigo Olmos MD Anesthesia: Debbie Sommer CRNA A timeout was performed. A bite blocked was placed. The patient was positioned in the left lateral decubitus position. Anesthesia was administered. The endoscope was inserted through the bite block and passed through the esophagus and stomach and into the duodenum. The duodenal mucosa appeared normal. The scope was withdrawn into the stomach. There was food in the stomach suggestive of delayed gastric emptying. The rest of the visualized stomach was normal. The scope was retroflexed and no significant hiatal hernia was seen. The scope was withdrawn into the esophagus and some dilated veins were noted in the upper third of the esophagus. The remainder of the esophagus was normal. The scope was withdrawn. The patient was awakened and brought to recovery. Sedation time: 4 minutes Findings: Retained food in the stomach and dilated veins in the upper third of the esophagus Post-procedure Disposition: PACU
[2024-04-01 10:41] VITALS: BP 90/54; PULSE 51; RESP 14; TEMP 36.6; O2SAT 93
[2024-04-01 10:46] VITALS: BP 89/57; PULSE 51; RESP 12; O2SAT 95
[2024-04-01 10:51] VITALS: BP 97/63; PULSE 51; RESP 14; O2SAT 96
[2024-04-01 10:56] VITALS: BP 107/60; PULSE 51; RESP 16; O2SAT 96
== END 2024-04-01 11:08 | disposition home or self-care (01) ==
PROVIDERS: Family Provider Family Medicine; PCP Family Medicine; Referring Provider Surgery; Visit Provider Surgery
PROC: 0DJ08ZZ Inspection of Upper Intestinal Tract, Via Natural or Artificial Opening Endoscopic (ICD-10-PCS; CPT 43235; principal; 2024-04-01 11:15)
DX: R13.10 Dysphagia, unspecified (principal)
CPT/HCPCS: 43235; J2704

== ENCOUNTER → 2024-04-16 07:32 | Outpatient (CLI) | payer MEDICARE, OTHER, SELFPAY ==
--- NOTE | 2024-04-16 07:33 | DI.NM.S_ITS ---
PROCEDURE: NM GASTRIC EMPTYING STUDY RADIOPHARMACEUTICAL: 1.1 mCi Tc-99m sulfur colloid in an egg sandwich. INDICATIONS: suspected delayed gastric emptying TECHNIQUE: A Tc-99m labeled sulfur colloid labeled egg sandwich or oatmeal was served to the patient. Anterior and posterior planar images of the abdomen were obtained at 0 minutes and 30 minutes, then at hourly intervals up to 4 hours. The patient was upright and ambulating during the interval. COMPARISON: None. FINDINGS: The stomach has normal size, morphology, and position. There is normal emptying of solid gastric contents from the stomach by visual inspection. No gastroesophageal reflux is visualized. The half time was 105 minutes, and total emptying time was 177 minutes. IMPRESSION: Normal gastric emptying. Dictated by: Lee Villasenor M.D. on 04/16/2024 at 16:24 Approved by: Lee Villasenor M.D. on 04/16/2024 at 16:28
== END ==
PROVIDERS: Family Provider Family Medicine; PCP Family Medicine; Referring Provider Surgery; Visit Provider Surgery
DX: R13.19 Other dysphagia (principal)
CPT/HCPCS: 78264; A9541

== ENCOUNTER → 2024-05-22 13:49 | Outpatient (CLI) | payer MEDICARE, OTHER, SELFPAY ==
--- NOTE | 2024-05-22 | DI.CT.S_ITS ---
PROCEDURE: CT CHEST WO CON INDICATIONS: SOLITARY FIBROUS TUMOR TECHNIQUE: Noncontrast 5 mm thick sections acquired from the pulmonary apices to the posterior costophrenic angles. 1 mm lung window, 5 mm thick coronal and sagittal and 7 mm axial MIP reformats were then acquired. For radiation dose reduction, the following was used: automated exposure control, adjustment of mA and/or kV according to patient size. COMPARISON: [facility], CT, CT CHEST WO CON, 10/14/2023, 12:07. FINDINGS: Image quality: Diagnostic Lungs and pleura: Centrilobular nodules is seen in the left lower lung. Scattered scarring and atelectasis. Overall findings similar to prior. Overall similar thickening and bronchiectasis of the bilateral roxana again seen, also similar to prior. No pleural effusions. Other small pulmonary nodules are similar to prior Mediastinum, heart, and esophagus: Calcified lymph nodes throughout the mediastinum again seen. Small hiatal hernia and significantly patulous esophagus again seen (endoscopy or fluoroscopy could further evaluate). Coronary calcifications. Heart size is overall normal. No pathologic lymph nodes by size criteria. Chest wall and thyroid: Unremarkable Upper abdomen: No gross abnormality on these noncontrast images Bones: Left chest wall postsurgical changes. Degenerative spine changes. IMPRESSION: No new or enlarging disease. No pleural effusions. Numerous small pulmonary nodules, hilar and perihilar thickening with bronchiectasis, and atelectasis/scarring are similar to prior. Continued attention on follow-up is advised. Other findings above. Dictated by: Vincent Garcia M.D. on 05/22/2024 at 17:54 Approved by: Vincent Garcia M.D. on 05/22/2024 at 18:01
== END ==
LOC: CT 13:51
PROVIDERS: Family Provider Family Medicine; PCP Family Medicine
DX: R91.8 Other nonspecific abnormal finding of lung field (principal); D49.2 Neoplasm of unspecified behavior of bone, soft tissue, and skin; J47.9 Bronchiectasis, uncomplicated; J98.11 Atelectasis; J98.4 Other disorders of lung; I25.10 Atherosclerotic heart disease of native coronary artery without angina pectoris; K44.9 Diaphragmatic hernia without obstruction or gangrene
CPT/HCPCS: 71250

== ENCOUNTER → 2024-11-16 07:53 | Outpatient (CLI) | payer MEDICARE, OTHER, SELFPAY ==
--- NOTE | 2024-11-16 07:57 | DI.CT.S_ITS ---
PROCEDURE: CT CHEST WO CON INDICATIONS: Fibrous Tumor TECHNIQUE: Noncontrast 5 mm thick sections acquired from the pulmonary apices to the posterior costophrenic angles. 1 mm lung window, 5 mm thick coronal and sagittal and 7 mm axial MIP reformats were then acquired. For radiation dose reduction, the following was used: automated exposure control, adjustment of mA and/or kV according to patient size. COMPARISON: [facility], CT, CT CHEST WO [facility], 05/22/2024, 14:05. FINDINGS: Image quality: Diagnostic. Lower Neck: No enlarged lymph nodes. Thyroid: No thyroid nodules which require sonographic follow up, per consensus guidelines. Axillae: No enlarged lymph nodes. Chest Wall: Unremarkable. Bones: Unremarkable. Lungs and Pleura: No pneumothorax or pleural effusions. There is essentially stable appearance of previously seen bilateral central bronchiectasis, worse over linear parenchymal densities and volume loss in the mid to upper lungs bilaterally. Several linear irregular parenchymal densities are also stable bilaterally. No new consolidation or dominant focal lesion seen. Heart: Heart size is normal. No pericardial effusion. Thoracic Vessels: The aorta and pulmonary arteries demonstrate normal size. Mediastinum and [place]: No enlarged lymph nodes. Esophagus: No wall thickening. Small hiatal hernia. Upper Abdomen: Visualized upper abdomen solid organs and bowel loops appear normal. IMPRESSION: 1. Essentially stable appearance of bronchiectasis and parenchymal scarring bilaterally as well as several bilateral linear densities, also likely due to scarring. 2. No new suspicious focal lesion or acute abnormality seen. Dictated by: Kwaku Salguero M.D. on 11/16/2024 at 13:33 Approved by: Kwaku Salguero M.D. on 11/16/2024 at 13:39
[2024-11-16 10:29] LABS: HEMOLYSIS < 15 (0-50); Iron 76 ug/dL (49-181)
[2024-11-16 10:35] LABS: Alanine Aminotransferase 15 IU/L (<50); Albumin 4.1 g/dL (3.5-5.0); Albumin Globulin Ratio 1.5 (1.0-2.8); Alkaline Phosphatase 57 U/L (38-126); Aspartate Aminotransferase 29 IU/L (17-59); Bilirubin Unconjugated 0.6 mg/dL (0.0-1.1); Globulin 2.7 g/dL (1.7-4.1); HEMOLYSIS < 15 (0-50); Total Protein 6.8 g/dL (6.3-8.2)
[2024-11-16 10:40] LABS: Percent Iron Saturation 25 % (20-50); Total Iron Binding Capacity 303 ug/dL (261-462); Transferrin 250 mg/dL (206-381)
[2024-11-17 04:40] LABS: Ceruloplasmin 23.7 mg/dL (16.0-31.0)
== END ==
PROVIDERS: Family Provider Family Medicine; PCP Family Medicine; Visit Provider Physician Assistant
DX: J47.9 Bronchiectasis, uncomplicated (principal); K44.9 Diaphragmatic hernia without obstruction or gangrene; D49.2 Neoplasm of unspecified behavior of bone, soft tissue, and skin; R79.89 Other specified abnormal findings of blood chemistry; R17 Unspecified jaundice
CPT/HCPCS: 36415; 71250; 80076; 82390; 83540; 83550